=== PATIENT | female | born 1970 | race Hispanic/Latino ===

== ENCOUNTER 2017-09-15 01:18 | Emergency (ER) | payer MEDICAID, OTHER ==
[2017-09-15 01:18] VITALS: BMI 23.6
[2017-09-15 01:50] VITALS: TEMP 98.3
--- NOTE | 2017-09-15 02:17 | ED PDOC ---
HPI: Psych/Substance Abuse Time Seen by Provider: 09/15/17 01:40 Chief Complaint (Nursing): Psychiatric Evaluation History Per: Patient, EMS History/Exam Limitations: no limitations Modifying Factor(s): None Severity: None Additional History Per: Prison Additional Complaint(s): Hx of MDD, HTN, Anxiety, MS, Schizoaffective d/o, bipolar d/o presenting with auditory hallucinations, she states she has never heard them before but they have been occurring for weeks. States that they are telling her to join her son , who . States she does not want to act upon them. Denies drug or alcohol abuse. Denies chest pain, shortness of breath, fevers, or any other symptoms. Past Medical History Reviewed: Historical Data, Nursing Documentation, Vital Signs Vital Signs: Last Vital Signs Temp 98.3 F 09/15/17 01:47 Pulse 87 09/15/17 01:47 Resp 16 09/15/17 01:47 BP 109/65 09/15/17 01:47 Pulse Ox 96 09/15/17 01:47 - Medical History PMH: Anxiety, Asthma (denied), Bronchitis (denied), Depression, Multiple Sclerosis Denies: Diabetes, Hepatitis, HIV, HTN, Chronic Kidney Disease, Seizures ( denies), Sexually Transmitted Disease - Surgical History Surgical History: - Family History Family History: States: Unknown Family Hx - Immunization History Hx Tetanus Toxoid Vaccination: Yes Hx Influenza Vaccination: Yes Hx Pneumococcal Vaccination: No - Home Medications Home Medications: Ambulatory Orders Medication Instructions Recorded DULoxetine [Cymbalta] 60 mg PO DAILY #14 ecc 01/03/16 Divalproex [Depakote DR(*BID*)] 500 mg PO AMHS #30 tcp 01/03/16 Gabapentin [Neurontin] 600 mg PO TID #42 tab 01/03/16 Nicotine 14 mg/24 hr [Nicoderm CQ] 1 patch TD DAILY #14 patch 01/03/16 QUEtiapine [Seroquel] 100 mg PO DAILY #14 tab 01/03/16 QUEtiapine [Seroquel] 200 mg PO HS #14 tab 01/03/16 DULoxetine [Cymbalta] 60 mg PO DAILY #30 ecc 02/02/16 Divalproex [Depakote DR] 500 mg PO BID #60 tcp 02/02/16 Gabapentin [Neurontin] 300 mg PO TID #90 cap 02/02/16 QUEtiapine [SEROquel] 50 mg PO HS #30 tab 02/02/16 Famotidine [Pepcid] 20 mg PO DAILY #20 tab 02/04/16 - Allergies Allergies/Adverse Reactions: Allergies Allergy/AdvReac Type Severity Reaction Status Date / Time No Known Allergies Allergy Verified 09/15/17 01:47 Review of Systems ROS Statement: Except As Marked, All Systems Reviewed And Found Negative Psych: Positive for: Anxiety. Negative for: Suicidal ideation Physical Exam - Reviewed Nursing Documentation Reviewed: Yes Vital Signs Reviewed: Yes - Physical Exam Appears: Positive for: Well, Non-toxic, No Acute Distress Head Exam: Positive for: ATRAUMATIC, NORMAL INSPECTION, NORMOCEPHALIC Skin: Positive for: Normal Color, Warm, DRY Eye Exam: Positive for: EOMI, Normal appearance, PERRL ENT: Positive for: Normal ENT Inspection Neck: Positive for: Normal, Painless ROM Cardiovascular/Chest: Positive for: Regular Rate, Rhythm Respiratory: Positive for: CNT, Normal Breath Sounds Gastrointestinal/Abdominal: Positive for: Normal Exam, Soft Back: Positive for: Normal Inspection Extremity: Positive for: Normal ROM Neurologic/Psych: Positive for: Alert, data technical lead II-XII, Oriented, Mood/Affect (Normal ). Negative for: Motor/Sensory Deficits - Laboratory Results Result Diagrams: 09/15/17 02:20 09/15/17 02:20 - ECG O2 Sat by Pulse Oximetry: 96 Pulse Ox Interpretation: Normal Medical Decision Making Medical Decision MakinAM A/P: Hx of mult med/psych problems presenting with auditory hallucination -patient calm, cooperative, normal vitals -will get labs to r/o medical cause of condition -likely result of schizoaffective/bipolar disorder -pending crisis eval 630AM Patient cleared by crisis with diagnosis of depression by Dr. Webster Patient medicaly stable, calm, normal vitals at time of discharge. Disposition - Clinical Impression Clinical Impression: Depression - Patient ED Disposition Is Patient to be Admitted: No - Disposition Disposition: Routine/Home Disposition Time: 06:50 Condition: STABLE Instructions: Depression Forms: [employer] (Cuban)
[2017-09-15 02:25] LABS: BASO # 0.1 K/uL (0.0-0.2); BASO % 0.7 % (0.0-2.0); EOS # 0.2 K/uL (0.0-0.7); EOS % 2.2 % (0.0-4.0); HEMOGLOBIN 14.2 g/dL (12.0-16.0); LYMPH # 1.9 K/uL (1.0-4.3); LYMPH % 18.1 % (20.0-40.0); MEAN CELL VOLUME 82.4 fl (81.0-99.0); MEAN CORPUSCULAR HEMOGLOBIN 27.4 pg (27.0-31.0); MEAN CORPUSCULAR HGB CONC 33.3 g/dL (33.0-37.0); MEAN PLATELET VOLUME 8.1 fl (7.2-11.7); MONO # 0.9 K/uL (0.0-0.8); MONO % 8.8 % (0.0-10.0); NEUT # 7.5 K/uL (1.8-7.0); NEUT % 70.2 % (50.0-75.0); NRBC % 0.1 % (0.0-0.0); RBC 5.17 Mil/uL (3.80-5.20); RED CELL DISTRIBUTION WIDTH 14.4 % (11.5-14.5); WHITE BLOOD COUNT 10.7 K/uL (4.8-10.8)
[2017-09-15 02:34] LABS: ACETAMINOPHEN < 10.0 ug/ml (10.0-30.0); SALICYLATE < 1.0 mg/dl
[2017-09-15 02:35] LABS: BLOOD UREA NITROGEN 17 mg/dl (7-17); CALCIUM 9.2 mg/dL (8.4-10.2); GFR AFRICAN-AMERICAN > 60; GFR NON-AFRICAN AMERICAN > 60
[2017-09-15 05:33] LABS: SQUAMOUS EPITHIAL < 1 /hpf (0-5); URINE BILIRUBIN NEGATIVE (NEGATIVE); URINE BLOOD NEGATIVE (NEGATIVE); URINE CLARITY SLIGHTY-CLOUDY (Clear); URINE COLOR YELLOW (YELLOW); URINE GLUCOSE (UA) NEG (Normal); URINE LEUKOCYTE ESTERASE NEG Leu/uL (Negative); URINE PROTEIN NEGATIVE (NEGATIVE); URINE UROBILINOGEN 0.2-1.0 mg/dL (0.2-1.0)
[2017-09-15 06:01] LABS: BARBITURATES, UR NEGATIVE (NEGATIVE); BENZODIAZEPINES, UR NEGATIVE (NEGATIVE); OPIATES, UR NEGATIVE (NEGATIVE); PHENCYCLIDINE, UR NEGATIVE (NEGATIVE)
[2017-09-15 11:45] VITALS: BP 110/68; PULSE 82; RESP 18; O2SAT 98
== END 2017-09-15 10:45 ==
LOC: H.ER 01:18
DX: F32.9 Major depressive disorder, single episode, unspecified (principal); F31.9 Bipolar disorder, unspecified; F41.9 Anxiety disorder, unspecified; G35 Multiple sclerosis; I10 Essential (primary) hypertension